=== PATIENT | female | born 1985 | race Caucasian/White ===

== ENCOUNTER 2019-12-18 14:48 | Outpatient (CLI) | payer OTHER, SELFPAY ==
[2019-12-18 16:09] LABS: Hemoglobin 11.6 g/dL (12.0-15.0)
[2019-12-18 16:24] LABS: Glucose 1 Hour PP 50gm Dose 107 mg/dL
[2019-12-18 17:04] LABS: HIV 1/2 Ab P24 Ag Result Negative (Negative)
[2019-12-19 07:05] LABS: Rapid Plasma Reagin Non-Reactive (NonReactive)
[2019-12-19] MEDS: RHO(D) IMMUNE GLOBULIN 300 MCG SYRINGE IM (14:58)
== END 2019-12-18 14:49 | disposition home or self-care (01) ==
PROVIDERS: Visit Provider Obstetrics & Gynecology
DX: Z36.0 Encounter for antenatal screening for chromosomal anomalies (principal); O36.0130 Maternal care for anti-D [Rh] antibodies, third trimester, not applicable or unspecified
CPT/HCPCS: 36415; 82947; 85014; 85018; 86592; 86703; 86900; 86901; 90384; 96372; G0432; J2790

== ENCOUNTER 2020-03-08 14:31 | Observation (INO) | payer OTHER, SELFPAY ==
[2020-03-08 17:44] VITALS: BMI 28.4
--- NOTE | 2020-03-28 11:52 | PM.OBTRLD ---
OB - Triage/Final Diagnosis Visit Information Date of evaluation: 03/08/20 Final Diagnosis (1) False labor: Code(s): O47.9 - False labor, unspecified Status: Acute
== END 2020-03-08 17:40 | disposition home or self-care (01) ==
PROVIDERS: Admitting Provider Obstetrics & Gynecology; Visit Provider Obstetrics & Gynecology
DX: O47.1 False labor at or after 37 completed weeks of gestation (principal); Z3A.37 37 weeks gestation of pregnancy
CPT/HCPCS: G0378; G0379

== ENCOUNTER 2020-03-19 00:14 | Inpatient (IN) | payer OTHER, SELFPAY ==
[2020-03-19] VITALS (204 sets, daily range): BP systolic 64–142; BP diastolic 27–93; PULSE 25–127; RESP 18; TEMP 36.5–37.3; O2SAT 83–100; BMI 28.2
--- NOTE | 2020-03-19 00:14 | LDADM ---
This patient, Pat Colon, was admitted to Labor/Delivery/Recovery 102 on 03/19/20 at 00:14. Plans for labor, pain management and were discussed with patient. Patient/family oriented to hospital policies and general routines including ID bracelet, bed and alarms, visiting hours, pain management, procedures, bathroom and other care routines, personal items, smoking policy, room service/diet and guest tray routines, infant security routines, and visiting hours. Patient/Family are encouraged to report perceived risks to care and to ask questions if they do not understand what they are told or what they should do. See OBIX for further documentation.
[2020-03-19 02:31] LABS: Basophils Percent Auto 0.2 % (0.2-1.2); Eosinophils Percent Auto 0.3 % (0-4.4); Hematocrit 36.6 % (37.0-47.0); Hemoglobin 12.7 g/dL (12.0-15.0); Immature Granulocyte Absolute 0.05 K/mm3 (0.00-0.031); Immature Granulocyte Percent A 0.5 % (0-0.5); Lymphocytes Absolute Auto 1.96 K/mm3 (0.9-3.2); Lymphocytes Percent Auto 21.2 % (18.3-44.2); Mean Corpuscular HGB Conc 34.7 g/dl (32-36); Mean Corpuscular Hemoglobin 32.6 pg (26-34); Mean Corpuscular Volume 93.8 fl (80-100); Mean Platelet Volume 12.6 fl (7.4-10.4); Monocytes Absolute Auto 0.6 K/mm3 (0.1-0.6); Monocytes Percent Auto 6.8 % (2.6-8.5); Neutrophils Absolute Auto 6.5 K/mm3 (1.3-6.7); Platelet Count Result 138 k/mm3 (150-375); Red Cell Distribution Width 12.2 % (11.5-14.5); White Blood Count 9.2 K/mm3 (4.5-10.0)
[2020-03-19] MEDS: CLINDAMYCIN 900 MG/NS 50 ML 900 MG/50 ML PIGGYBACK 50 MG IVPB ×3 (04:17→19:43)
--- NOTE | 2020-03-19 06:56 | WPDOBADMIT ---
Obstetrics - Admit Note Admission Note: record reviewed. No pertinent additions to the history and/or any subsequent changes in the physical findings that are not consistent with the expected course of the were found.Pt arrived with SROM, forebag ruptured, minimal clear fluid, IUPC placed. Pt has hx of successful TOLAC, first was for arrested dilation, vaginal delivery after w/o complication. This has been uncomplicated, reviewed with pt an risks including uterine rupture. anticipate vaginal delivery Additions to the history and/or subsequent changes in the physical findings follow. None.
[2020-03-19] MEDS: LACTATED RINGERS 1,000 ML 125 ML IV CONT ×3 (07:33→21:04)
[2020-03-19] MEDS: OXYTOCIN 30 UNITS/NS 500 ML 30 UNITS/500 ML BAG IV CONT (07:33)
[2020-03-19 12:08] LABS: Rapid Plasma Reagin Non-Reactive (NonReactive)
--- NOTE | 2020-03-19 14:09 | P.PNAN_ITS ---
Anes - Eval Pre Procedure Procedure: labor epidural Date/Time: 03/19/20 14:09 Surgeon: Bethanie Preop Diagnosis: labor pain Pre Op Diagnosis: leaking Patient Data Age: 34 Gender: F Height: 1.57 m Weight: 70 kg Last Vital Signs Temp 36.7 C 03/19/20 13:30 Pulse 71 03/19/20 14:00 BP 111/73 03/19/20 14:00 Allergies Allergy/AdvReac Type Severity Reaction Status Date / Time Penicillins Allergy Intermediate Hives Verified 02/25/20 12:42 latex Allergy Rash Verified 02/25/20 12:43 Home Medications Medication Instructions Recorded Confirmed Type PNV cmb#95-ferrous fumarate-FA 1 tablet PO DAILY 02/25/20 03/19/20 History [] Laboratory Tests 03/19/20 03/19/20 03/19/20 00:47 00:47 00:47 WBC 9.2 K/mm3 K/mm3 (4.5-10.0) RBC 3.90 M/mm3 L M/mm3 (4.2-5.4) Hgb 12.7 g/dL g/dL (12.0-15.0) Hct 36.6 % L % (37.0-47.0) MCV 93.8 fl fl (80-100) MCH 32.6 pg pg (26-34) MCHC 34.7 g/dl g/dl (32-36) RDW 12.2 % % (11.5-14.5) Plt Count 138 k/mm3 L k/mm3 (150-375) MPV 12.6 fl H fl (7.4-10.4) Immature Gran % (Auto) 0.5 % % (0-0.5) Neut % (Auto) 71.0 % % (45.5-73.1) Lymph % (Auto) 21.2 % % (18.3-44.2) Dickey % (Auto) 6.8 % % (2.6-8.5) Eos % (Auto) 0.3 % % (0-4.4) Baso % (Auto) 0.2 % % (0.2-1.2) Lymph # (Auto) 1.96 K/mm3 K/mm3 (0.9-3.2) Dickey # (Auto) 0.6 K/mm3 K/mm3 (0.1-0.6) Eos # (Auto) 0.0 K/mm3 K/mm3 (0-0.3) Baso # (Auto) 0.0 K/mm3 K/mm3 (0.0-0.1) Abs Immat Gran (auto) 0.05 K/mm3 H K/mm3 (0.00-0.031) Absolute Neuts (auto) 6.5 K/mm3 K/mm3 (1.3-6.7) Absolute Nucleated RBC 0.0 K/mm3 K/mm3 (0.0-0.012) Nucleated RBC % 0.0 % % (0.0-0.2) RPR Non-reactive (NonReactive) Blood Type A Negative Antibody Screen Positive Antibody Identification Passive Due to RH Imm Glob Antigen Identification Cancelled TERRI, IgG Interpret Cancelled TERRI, Poly Interpret Cancelled TERRI, Complement Interp Cancelled Patient hx anesthesia problems: none Family hx anesthesia problems: none [facility] Family History Family History (Updated 02/25/20 @ 12:45 by Selam Valdez RN) Mother Pott disease Father Hypertension Sibling Hypothyroidism Grandparent Lung cancer Brain cancer Social History Social History Smoking status: Never smoker Substance use: never Spiritual care concerns: No Exam Day of Procedure 03/19/20 14:09
--- NOTE | 2020-03-19 21:33 | PM.OBPNLAB ---
Pain Control Date/time seen: 03/19/20 21:33 Pt comfortable VSS Contractions regular FHR category 1 Cervix 5/100/-2 Forebag ruptured. Moderate amount of fluid I have discussed increased risk of uterine rupture with prolonged labor. Pt states her 1st vaginal was also very long. I am optimistic with the rupture of forebag along with cervical change. Pt verbalized understaning of risk and wants to proceed with .
[2020-03-20] VITALS (41 sets, daily range): BP systolic 103–130; BP diastolic 45–89; PULSE 26–163; RESP 16–20; TEMP 36.5–36.7; O2SAT 78–100
[2020-03-20] MEDS: LACTATED RINGERS 1,000 ML 125 ML IV CONT
--- NOTE | 2020-03-20 01:26 | P.PCNOB_ITS ---
OB - Delivery Note Procedure Delivery date: 03/20/20 events: Labor Augmentation and Prolonged Rupture of Membrane Route of delivery: Episiotomy description: None Laceration description: None Estimated blood loss (mL): 110 Anesthesia type: Epidural [place] Baby Date of : 03/20/20 Time of : 01:00 Weeks of gestation at delivery: 39 Weight (pounds): 6 Weight (ounces): 15 presentation: vertex position: Right Occiput Anterior Placenta delivery description: Spontaneous cord vessel description: 3 Vessels and Around Extremity x1 score one minute: 8 score five minutes: 9 Narrative: Mother and baby in stable condition. Cord gasses collected and handed off to nursery staff.
[2020-03-20] MEDS: OXYTOCIN 30 UNITS/NS 500 ML 30 UNITS/500 ML BAG 125 UNITS IV CONT (01:28)
[2020-03-20] MEDS: BENZOCAINE 20% AER SPR (*SP) 56 GM CAN 1 SPRAY TOPICAL (02:53)
[2020-03-20] MEDS: WITCH HAZEL 40 PADS 1 PAD TOPICAL (02:53)
[2020-03-20] MEDS: MULTIVIT/MIN/PREN/FOL AC/IRON TABLET 1 TAB PO (06:24)
[2020-03-20] MEDS: IBUPROFEN 600 MG TABLET PO ×2 (06:24→16:21)
[2020-03-20] MEDS: ACETAMINOPHEN 325 MG TABLET 650 MG PO ×2 (09:48→20:01)
[2020-03-21] MEDS: IBUPROFEN 600 MG TABLET PO ×3 (04:47→16:06)
[2020-03-21 05:10] LABS: Hematocrit 31.7 % (37.0-47.0); Hemoglobin 10.9 g/dL (12.0-15.0)
[2020-03-21 08:00] VITALS: BP 100/51; PULSE 72; RESP 18; TEMP 36.9
--- NOTE | 2020-03-21 09:08 | PM.OBPNVD ---
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
[2020-03-21] MEDS: DOCUSATE SODIUM 100 MG CAPSULE PO ×2 (12:22→16:05)
[2020-03-21] MEDS: MULTIVIT/MIN/PREN/FOL AC/IRON TABLET 1 TAB PO (12:23)
--- NOTE | 2020-03-21 15:30 | PC.NURSE ---
PT introductions made and plan of care discussed per post , pain management, breast feeding, daily care activities. PT verbalized understanding of such care.
[2020-03-21] MEDS: RHO(D) IMMUNE GLOBULIN 300 MCG SYRINGE IM (16:04)
[2020-03-21 19:15] VITALS: BP 126/80; PULSE 58; RESP 18; TEMP 37.3; O2SAT 99
[2020-03-21] MEDS: ACETAMINOPHEN 325 MG TABLET 650 MG PO (19:40)
--- NOTE | 2020-03-22 03:14 | PC.NURSE ---
Addendum entered by Pamela Eastman RN 03/22/20 03:15: Please enter this note as occurring 03/20/20 at 2300. Original Note: Patient viewed the discharge video Mother & Baby Care, The First Two Weeks . Patient was given the opportunity and encouraged to ask questions. Patient verbalized understanding of information shared and has been given the mother/baby guide for home reference.
--- NOTE | 2020-03-22 07:48 | PM.OBPNVD ---
OB - PN: Subj Subjective Date/time seen: 03/22/20 07:48 OB - PN: Obj Data Labs CBC & Chem 7: 03/21/20 04:54 Labs: Laboratory Results - last 24 hr 03/21/20 04:54 Blood Type A Negative Antibody Screen Negative Screen Negative Baby's Blood Type O pos Baby's TERRI Negative Doses of RhIg Required 1 OB - PN A/P Plan day: 2 Plan: routine care and discharge home (F/U 4 weeks.) Time Spent With Patient Time: Total time spent is greater than 50% in coordination of care (as documented) at patient's floor/unit and/or counseling patient: Time with patient: less than 15 minutes Review of Systems Review of Systems: All systems reviewed & are unremarkable except as noted in HPI and below Exam Narrative: Exam Narrative: Fundus firm and vaginal flow controlled. Const: General: comfortable Chest: Breast/axilla inspection: normal inspection of the breasts Resp: Effort & Inspection: normal respiratory effort Cardio: Rate: regular rate Psych: Appearance: grossly normal Affect: normal affect Attitude: cooperative Judgement: Good judgement present (Psych)
--- NOTE | 2020-03-22 07:49 | PM.OBDSVD ---
DS: Admitting Diagnosis Admitting Diagnosis Admitting Diagnosis: Labor DS: Discharge Diagnosis Discharge Diagnosis (1) (vaginal after ): Code(s): O34.219 - Maternal care for unspecified type scar from previous delivery Status: Acute OB - DS: Summary OB Procedures : None OB Procedures Intrapartum: OB Procedures: : None Time Spent with Patient Time attestation: Total time spent providing and/or coordinating discharge services: DS: Data Data Completed and Pending Labs on day of discharge: Labs from last 24 hours 03/21/20 04:54 Blood Type A Negative Antibody Screen Negative Screen Negative Baby's Blood Type O pos Baby's TERRI Negative Doses of RhIg Required 1 Discharge Plan Discharge Attending physician on discharge: Heather Chandler Consulting providers: Grayson Al Discharging Clinician: Heather Chandler Patient Disposition: Home, Self-Care Activity: pelvic rest Diet: as tolerated Patient Instructions: Antibiotic Form Stand Alone Forms: General Discharge Information Follow-up/Referrals: Heather Chandler CNM [Certified Nurse Computer Programming Manager] - Discharge Medications: New ibuprofen 600 mg Tablet 600 mg PO Q6H PRN (Reason: Cramping) Qty: 20 RF: 0 Continued PNV cmb#95-ferrous fumarate-FA [] 28 mg iron- 800 mcg Tablet 1 tablet PO DAILY RF: 0 Date of admission: 03/19/20 00:14 Primary Care Provider: PHYSICIAN,ARCH CUSHION PRESS OPERATOR Admitting Provider: Gita Kovacs Attending physician on admission: Gita Kovacs
[2020-03-22 08:00] VITALS: BP 117/82; PULSE 62; RESP 20; TEMP 37.1; O2SAT 100
[2020-03-22] MEDS: IBUPROFEN 600 MG TABLET PO (08:06)
[2020-03-22] MEDS: DOCUSATE SODIUM 100 MG CAPSULE PO (08:06)
[2020-03-22] MEDS: MULTIVIT/MIN/PREN/FOL AC/IRON TABLET 1 TAB PO (08:06)
[2020-03-23 11:02] VITALS: BP 114/65; PULSE 72; RESP 16; TEMP 36.6; O2SAT 99
== END 2020-03-22 10:50 | disposition home or self-care (01) | DRG 560 ==
LOC: ANHLDR 02:59 → ANHOB2 03-20 03:47
PROVIDERS: Advanced Practice Midwife; Admitting Provider Obstetrics & Gynecology; Visit Provider Obstetrics & Gynecology
DX: O42.12 Full-term premature rupture of membranes, onset of labor more than 24 hours following rupture (principal); Z37.0 Single live birth; Z3A.39 39 weeks gestation of pregnancy; O63.9 Long labor, unspecified; O34.211 Maternal care for low transverse scar from previous cesarean delivery; O36.8330 Maternal care for abnormalities of the fetal heart rate or rhythm, third trimester, not applicable or unspecified; O69.82X0 Labor and delivery complicated by other cord entanglement, without compression, not applicable or unspecified
CPT/HCPCS: 36415; 84112; 85014; 85018; 85025; 85461; 86592; 86850; 86900; 86901; 90384; A9270; J2590; J2790; J2795; J7120

== ENCOUNTER 2020-12-10 21:22 | Emergency (ER) | payer OTHER, SELFPAY ==
[2020-12-10 21:25] VITALS: BP 109/76; PULSE 64; RESP 16; TEMP 36.2; O2SAT 100
--- NOTE | 2020-12-10 22:04 | ED.WOUNDLAC ---
HPI - Wound/Laceration General Chief Complaint: Wound/Laceration Stated Complaint: huge infected bump on leg Time Seen by Provider: 12/10/20 21:35 Source: patient Mode of arrival: ambulatory Limitations: no limitations History of Present Illness HPI narrative: 35-year-old female Here to get a bump on her left upper leg checked She said it started earlier today as a small bump with a little clear fluid draining out of it She was trying to clear it up by squeezing it and getting it to drain but the unfortunate result was that the immediate area around it became more indurated and tender and there is about a 4 x 6 cm area of faint erythema no surrounding it Additionally, earlier there seem to be white, not red, streaks going down the inside of the leg towards the foot but that is resolved now Patient does not think that she has had any insect bites or stings but on the other hand she has had ingrown hairs or folliculitis and did not necessarily think it looks like that either She does not have any constitutional symptoms or fever Related Data Home Medications Medication Instructions Recorded Confirmed PNV cmb#95-ferrous fumarate-FA 1 tablet PO DAILY 02/25/20 03/19/20 [] meloxicam 12/10/20 Allergies Allergy/AdvReac Type Severity Reaction Status Date / Time Penicillins Allergy Intermediate Hives Verified 12/10/20 22:09 latex Allergy Rash Verified 12/10/20 22:09 Review of Systems Review of Systems: All systems reviewed & are unremarkable except as noted in HPI and below Constitutional: Constitutional: Denies chills, Denies fatigue, Denies fever(s) and Denies headache(s) ENT: Denies headache(s) and Denies epistaxis Cardiovascular: Cardiovascular: Denies leg edema, Denies palpitations and Denies dyspnea Respiratory: Respiratory: Denies cough and Denies dyspnea Gastrointestinal: Gastrointestinal: Denies nausea and Denies vomiting Genitourinary: Genitourinary: Denies hematuria and Denies urinary frequency Musculoskeletal: Musculoskeletal: Denies myalgias, Denies deformity, Denies muscle weakness and Denies numbness Integumentary/Breasts: Skin/Breast: Reports pruritus, Reports erythema, Reports rash and Denies wounds Neurologic: Denies numbness Endocrine: Endocrine: Denies fatigue and Denies palpitations Hematologic/Lymphatic: Hematologic/Lymphatic: Denies easy bleeding and Denies easy bruising PMFSH Family History Family History (Updated 02/25/20 @ 12:45 by Selam Valdez RN) Mother Pott disease Father Hypertension Sibling Hypothyroidism Grandparent Lung cancer Brain cancer Social History Social History Smoking status: Never smoker Substance use: never Spiritual care concerns: No Exam Const: General: no acute distress, well developed, alert and awake Nutritional Appearance: well nourished Orientation/consciousness: patient oriented x3 (alert) HENMT: Head: normocephalic and atraumatic Ears: external ears normal General nose exam: No nasal discharge present and no epistaxis Face and sinus: face symmetric Eyes: Conjunctivae: conjunctivae normal Sclera: sclerae normal EOM: EOMs intact bilaterally Neck: Neck: normal visual inspection, supple and no JVD Chest: Chest palpation & inspection: deferred Resp: Effort & Inspection: normal respiratory effort and not labored Auscultation: other (BS =) Cardio: Heart sounds: no gallops GI: Inspection: normal to inspection : General: Yes no CVA tenderness Back/Spine/Pelvis: Thoracic/Lumbar Spine: thoracic and lumbar spine normal to inspection Skin: General skin exam: normal color and no rashes or lesions noted Rashes: no rashes Neuro: General: patient oriented x3 (alert) and moves all extremities Cranial nerves: Yes facial symmetry Speech: normal speech Extrem: General: normal to inspection and full ROM Other: Left upper thigh has about a 1 cm area of induration with no obvious fluctuance and a small ce
[2020-12-10 22:12] VITALS: BP 99/52; PULSE 79; RESP 18; TEMP 36.6; O2SAT 100
== END 2020-12-10 22:36 | disposition home or self-care (01) ==
PROVIDERS: Emergency Provider Emergency Medicine; PCP Internal Medicine Infectious Disease
DX: L03.116 Cellulitis of left lower limb (principal); L73.9 Follicular disorder, unspecified
CPT/HCPCS: 10160; 99283; A9270

== ENCOUNTER 2021-03-22 10:48 | Emergency (ER) | payer OTHER, SELFPAY ==
--- NOTE | ~2021-03-22 | US_ITS ---
EXAMINATION: US OB <= 14 weeks fetus DATE: 03/22/2021 12:10 INDICATION: Right adnexal pain and pain TECHNIQUE: Real-time transabdominal and transvaginal obstetric ultrasound. FINDINGS: No prior studies for comparison. The uterus measures 7.5 x 3.8 5.1 cm. No intrauterine gestational sac is identified. There is endomet rial thickening measuring 1.4 cm. There is a small endometrial cyst measuring 4 mm. Right ovary is un remarkable measuring 2.7 x 2.2 x 2.4 cm. Left ovary is not well visualized. No adnexal masses or flui d collections. IMPRESSION: 1. No intrauterine identified. Recommend follow-up with serial quantitative beta-hCG levels and ultrasound as clinically indicated. 2: Mild endometrial thickening measuring 1.4 cm. Reviewed, dictated and finalized at location B. IMPRESSION: 1. No intrauterine identified. Recommend follow-up with serial quanti tative beta-hCG levels and ultrasound as clinically indicated. 2: Mild endometrial thickening measuring 1.4 cm.
[2021-03-22 11:04] VITALS: BP 126/64; PULSE 55; RESP 18; TEMP 36.3; O2SAT 100
[2021-03-22] MEDS: SODIUM CHLORIDE 0.9% IV 1,000 ML 999 ML IV CONT (11:21)
[2021-03-22 11:30] LABS: Basophils Percent Auto 0.4 % (0.2-1.2); Eosinophils Percent Auto 0.6 % (0-4.4); Hematocrit 39.8 % (37.0-47.0); Hemoglobin 13.3 g/dL (12.0-15.0); Immature Granulocyte Absolute 0.01 K/mm3 (0.00-0.031); Immature Granulocyte Percent A 0.2 % (0-0.5); Lymphocytes Absolute Auto 1.61 K/mm3 (0.9-3.2); Lymphocytes Percent Auto 31.3 % (18.3-44.2); Mean Corpuscular HGB Conc 33.4 g/dl (32-36); Mean Corpuscular Hemoglobin 31.8 pg (26-34); Mean Corpuscular Volume 95.2 fl (80-100); Mean Platelet Volume 11.2 fl (7.4-10.4); Monocytes Absolute Auto 0.4 K/mm3 (0.1-0.6); Monocytes Percent Auto 6.8 % (2.6-8.5); Neutrophils Absolute Auto 3.1 K/mm3 (1.3-6.7); Neutrophils Percent Auto 60.7 % (45.5-73.1); Platelet Count Result 176 k/mm3 (150-375); Red Blood Count 4.18 M/mm3 (4.2-5.4); Red Cell Distribution Width 12.1 % (11.5-14.5); White Blood Count 5.2 K/mm3 (4.5-10.0)
[2021-03-22 11:38] LABS: Add Urine Microscopic? YES; Appearance Urine Clear (Clear); Bilirubin Urine Negative (Negative); Blood Urine 1+ (Negative); Color Urine Yellow (Yellow); Glucose Urine UA Negative (Negative); Ketones Urine Negative (Negative); Leukocyte Esterase Ur Negative LEU/UL (Negative); Mucus Urine Rare /lpf; Nitrate Urine Negative (Negative); Protein Urine Negative (Negative); RBC Urine 0-2 /hpf (0-2); Specific Grav Ur 1.023 (1.001-1.035); Squamous Epithelial Cell Urine Moderate /hpf (Few); Urobilinogen Urine Negative mg/dL (<2.0); WBC Urine 0-3 /hpf
[2021-03-22 11:41] LABS: Alanine Aminotransferase 16 U/L (4-35); Albumin Level 4.3 g/dL (3.5-5.1); Alkaline Phosphatase 51 U/L (38-126); Anion Gap 7 mmol/L (8-16); Aspartate Amino Transferase 22 U/L (14-36); Bilirubin,Total 0.5 mg/dL (0.2-1.3); Blood Urea Nitrogen 17 mg/dL (7-17); Calcium 9.5 mg/dL (8.4-10.2); Carbon Dioxide 24 mmol/L (22-30); Chloride 107 mmol/L (98-107); Estimated CRCL calculation 69 ml/min; Estimated Glomerular Filt Rate > 60; Glucose 94 mg/dL (65-105); Lipase 59 U/L (23-300); Potassium 4.4 mmol/L (3.4-5.0); Sodium 138 mmol/L (137-145)
[2021-03-22 11:56] LABS: Beta HCG Quantitative 176.84 mIU/ML
--- NOTE | 2021-03-22 13:28 | ED.GENADULT ---
HPI - General Adult General Chief complaint: Abdominal Pain Stated complaint: / R sided abd pain Time Seen by Provider: 03/22/21 11:05 Source: patient, family and RN notes reviewed Mode of arrival: ambulatory Limitations: no limitations History of Present Illness HPI narrative: Patient is a 35-year-old female who presents to emergency department for evaluation of pelvic pain localized to the right side describes a sharp stabbing pain which began this morning patient notes that on Sunday she had a positive home test and Sunday began to have cramping and bleeding may discussion with her rn hospice and had blood testing performed as well as was given RhoGam and had planned follow-up for repeat hCG on Sunday patient notes that today the pain intensified and she was directed to the emergency department on arrival she notes she has not taken anything and notes sharp pain in the right adnexa denies abdominal pain or other concerns or symptoms at this time patient on arrival does not appear uncomfortable and is in the room in no distress and is accompanied by her . Patient is followed by Dr. Kovacs. Patient is G4, P3 Related Data Home Medications Medication Instructions Recorded Confirmed No Home Medications 03/22/21 03/22/21 Allergies Allergy/AdvReac Type Severity Reaction Status Date / Time Penicillins Allergy Intermediate Hives Verified 03/22/21 11:10 latex Allergy Rash Verified 03/22/21 11:10 Review of Systems Review of Systems: All systems reviewed & are unremarkable except as noted in HPI and below PMFSH Family History Family History (Updated 02/25/20 @ 12:45 by Selam Valdez, MARISOL) Mother Pott disease Father Hypertension Sibling Hypothyroidism Grandparent Lung cancer Brain cancer Social History Social History Smoking status: Never smoker Substance use: never Spiritual care concerns: No Exam Narrative: Exam Narrative: GENERAL: Well-appearing, well-nourished, and in no acute distress. HEAD: Normocephalic, atraumatic. EYES: PERRLA and EOMI. ENT: Nares clear, no rhinorrhea or epistaxis. Mucous membranes moist. CHEST: Clear to auscultation. No respiratory distress. No wheezes rales or rhonchi HEART: Regular rate and rhythm. No murmur heard. ABDOMEN: Soft, right adnexal tenderness to palpation no other abnormalities no rebound or guarding, nondistended, normal active bowel sounds. EXTREMITIES: Normal range of motion. No edema. SKIN: Warm, dry, no rash. NEURO: No focal deficits. Alert and oriented x3. Cranial nerves II through XII grossly intact PSYCH: Normal mood and affect. Course Course Emergency Course: Patient evaluated in the emergency department no high risk changes in the evaluation there was nothing seen on her ultrasound her beta quant has dropped from yesterday discussion was made with gynecology for further instructions and notes that he would like her to have repeat testing with follow-up at that time. Patient with ABCs and vital signs intact and stable. Was hydrated and given Tylenol with improvement of pain and discomfort. Patient feels comfortable with discharge home with this plan. She has been given reasons to return and agrees to do so Consultations Consultation #1: Case was discussed with gynecology who would like the patient have repeat serum quant on with follow-up case was discussed with Dr. Kovacs Date: 03/22/21 Time: 13:32 Vital Signs Vital signs: Vital Signs Temperature 97.3 F L 03/22/21 11:04 Pulse Rate 55 L 03/22/21 11:04 Respiratory Rate 18 03/22/21 11:04 Blood Pressure 126/64 03/22/21 11:04 Pulse Oximetry 100 03/22/21 11:04 Temperature 97.3 F L 03/22/21 11:04 Pulse Rate 55 L 03/22/21 11:04 Respiratory Rate 18 03/22/21 11:04 Blood Pressure 126/64 03/22/21 11:04 Pulse Oximetry 100 03/22/21 11:04 Medical Decision Making CHARLIE Garcia
== END 2021-03-22 13:43 | disposition home or self-care (01) ==
PROVIDERS: Emergency Medicine Emergency Medical Services; Emergency Provider Emergency Medicine; PCP Internal Medicine Infectious Disease
DX: O26.891 Other specified pregnancy related conditions, first trimester (principal); R10.9 Unspecified abdominal pain; Z3A.01 Less than 8 weeks gestation of pregnancy
CPT/HCPCS: 36415; 76801; 80053; 81001; 81025; 83690; 84702; 85025; 96365; 99284; J0131; J7030

== ENCOUNTER 2021-03-26 13:02 | Outpatient (RCR) | payer OTHER, SELFPAY ==
[2021-03-21 13:06] LABS: Beta HCG Quantitative 189.74 mIU/ML
[2021-03-21] MEDS: RHO(D) IMMUNE GLOBULIN 300 MCG/2 ML SYRINGE IM (18:07)
== END 2021-05-16 12:19 | disposition home or self-care (01) ==
LOC: ANHLAB 13:02
PROVIDERS: PCP Internal Medicine Infectious Disease; Visit Provider Obstetrics & Gynecology
DX: Z29.13 Encounter for prophylactic Rho(D) immune globulin (principal); O20.0 Threatened abortion; Z3A.00 Weeks of gestation of pregnancy not specified
CPT/HCPCS: 36415; 84702; 85461; 90384; 96372; J2790

== ENCOUNTER 2021-03-29 16:52 | Outpatient (CLI) | payer OTHER, SELFPAY ==
[2021-03-29 17:44] LABS: Beta HCG Quantitative 453.07 mIU/ML
== END 2021-03-29 16:53 | disposition home or self-care (01) ==
LOC: ANHLAB 16:54
PROVIDERS: PCP Internal Medicine Infectious Disease; Visit Provider Obstetrics & Gynecology
DX: O20.0 Threatened abortion (principal); Z3A.00 Weeks of gestation of pregnancy not specified
CPT/HCPCS: 36415; 84702

== ENCOUNTER 2021-04-04 14:16 | Emergency (ER) | payer OTHER, SELFPAY ==
[2021-04-04] VITALS (10 sets, daily range): BP systolic 78–175; BP diastolic 44–100; PULSE 44–78; RESP 13–22; TEMP 36.4–37.3; O2SAT 98–100
--- NOTE | ~2021-04-04 | US_ITS ---
EXAMINATION: US OB <=14 wk fetus w TV EXAM DATE: 04/04/2021 16:05 INDICATION: , vaginal bleeding. Beta hCG 230. 1st trimester. TECHNIQUE: Pelvic obstetrical transabdominal sonogram was performed by a technologist. There are mu ltiple grayscale and Doppler images available for interpretation. Comparison is made to prior examina tion from 03/22/2021. FINDINGS: Uterus measures 10.1 x 5.8 x 3.5 cm, without intrauterine identified. Please not e that gestation sac often not identified with beta hCG of only 230. Endometrial stripe measures 19 m m in thickness, increased from 14 mm on 03/22. Probably decidual reaction. There is small free pelvic fluid. Right adnexa: The ovary measures 2.5 x 2.1 x 2.1 cm, contains a thick-walled cystic lesion without yo lk sac or pole. Probably the corpus luteal cyst. Ovarian vascular flow confirmed. Left adnexa: The ovary is not identified. There is no adnexal mass. IMPRESSION: No intrauterine or extrauterine identified. Early intrauterine or rec ent spontaneous are common causes of elevated beta hCG in absence of intrauterine confirmation. Ultrasound can sometimes identify, but never exclude an ectopic in the setti ng of positive beta hCG. Follow up as warranted clinically with serial beta hCG levels or ultrasound . Reviewed, dictated and finalized at location A. IMPRESSION: No intrauterine or extrauterine identified. Early intraut erine or recent spontaneous are common causes of elevated be ta hCG in absence of intrauterine confirmation. Ultrasound can somet imes identify, but never exclude an ectopic in the setting of positiv e beta hCG. Follow up as warranted clinically with serial beta hCG levels or u ltrasound.
[2021-04-04 14:54] LABS: Basophils Percent Auto 0.3 % (0.2-1.2); Eosinophils Percent Auto 0.5 % (0-4.4); Hematocrit 40.5 % (37.0-47.0); Hemoglobin 13.8 g/dL (12.0-15.0); Immature Granulocyte Absolute 0.02 K/mm3 (0.00-0.031); Immature Granulocyte Percent A 0.3 % (0-0.5); Lymphocytes Absolute Auto 1.87 K/mm3 (0.9-3.2); Mean Corpuscular HGB Conc 34.1 g/dl (32-36); Mean Corpuscular Hemoglobin 31.5 pg (26-34); Mean Corpuscular Volume 92.5 fl (80-100); Mean Platelet Volume 11.4 fl (7.4-10.4); Monocytes Absolute Auto 0.4 K/mm3 (0.1-0.6); Monocytes Percent Auto 6.5 % (2.6-8.5); Neutrophils Absolute Auto 3.5 K/mm3 (1.3-6.7); Neutrophils Percent Auto 60.4 % (45.5-73.1); Platelet Count Result 214 k/mm3 (150-375); Red Blood Count 4.38 M/mm3 (4.2-5.4); White Blood Count 5.8 K/mm3 (4.5-10.0)
--- NOTE | 2021-04-04 15:33 | PC.NURSE ---
Patient's family member states that patient has been bleeding regularly and daily for the last month. He tells me that bleeding is usually self limiting but that today she has been continuing to have bleeding as well as severe cramping. Patient is noted to be laying in position on bed and does not answer questions, allowing family member to answer. When asked about pain patient does report 10/10 with family member over speaking her reporting patient has 11/10 pain. Patient reports that she needs to change tampons every two hours due to the bleeding. She also reports small clots present. [facility] 02/14/2021, she has not been provided with estimated due date. Family member reports she was supposed to be tomorrow but they came in due to the change in patient condition. He also reports that been having HCG levels checked every 72 hours with last draw on Sunday at this facility. She is a [id number].
[2021-04-04 15:34] LABS: Beta HCG Quantitative 230.15 mIU/ML
[2021-04-04] MEDS: MORPHINE SULFATE (*CRX) 4 MG/ML INJ (16:29)
[2021-04-04] MEDS: ONDANSETRON INJ 4 MG/2 ML VIAL (16:29)
--- NOTE | 2021-04-04 17:44 | ED.FEMALEGU ---
HPI - Female Genitourinary General Chief complaint: Vaginal Bleeding Stated complaint: 7 weeks,bleeding,pain Time Seen by Provider: 04/04/21 16:13 Source: patient, family and RN notes reviewed Mode of arrival: ambulatory Limitations: no limitations History of Present Illness HPI Narrative: Patient is 35 years old white female presented to the ED complaining of right lower quadrant pain associated with nausea, constant, and radiating to lower back today. Patient is 7 weeks , 5, para 3, 0, complaining of vaginal spotting alternating with heavy bleeding for the last 4 weeks. Was seen by Dr. denney 1 week ago and the impression was ectopic . Patient denies smoking, drinking or using drugs. History of section. Patient denies any fever, chills, vomiting, urinary symptoms. Related Data Allergies Allergy/AdvReac Type Severity Reaction Status Date / Time Penicillins Allergy Intermediate Hives Verified 03/22/21 11:10 latex Allergy Rash Verified 03/22/21 11:10 Review of Systems Review of Systems: Narrative: CONSTITUTIONAL: Denies fever, chills, or sweats. EYES: Denies visual changes, redness, or discharge. ENT: Denies rhinorrhea, congestion, sore throat, or otalgia. CARDIOVASCULAR: Denies chest pain, palpitations, or edema. RESPIRATORY: Denies cough or dyspnea. GASTROINTESTINAL: Denies abdominal pain, nausea, vomiting, or diarrhea. GENITOURINARY: Denies dysuria or hematuria. SKIN: Denies rash or itching. MUSCULOSKELETAL: Denies back pain, joint pain, or myalgia. NEUROLOGIC: Denies headache, numbness, or weakness. PSYCHIATRIC: Denies anxiety or depression. PMFSH Family History Family History Mother Pott disease Father Hypertension Sibling Hypothyroidism Grandparent Lung cancer Brain cancer Social History Social History Smoking status: Never smoker Substance use: never Gender identity (if verbalized by the patient): Female Spiritual care concerns: No Exam Narrative: Exam Narrative: General appearance: Well-developed, well-nourished, looks ill Skin: Normal color Head: Normocephalic, nontraumatic Eyes: Clear conjunctiva ENT: Oropharynx normal, ears normal, nose normal Neck: Supple, nontender Chest and respiratory: Airway patent, no respiratory distress, no accessory muscle use Heart: Regular rate/rhythm Abdomen: Soft, mild diffuse tenderness lower abdomen bilaterally,, no organomegaly, quiet bowel sounds Vascular: Normal peripheral pulses, normal capillary refill. Musculoskeletal: Normal range of motion, nontender back Neurologic: Alert and oriented ?3, CONTACT LENS TECHNICIAN is normal as tested, no gross motor deficit : External Female Exam: normal external appearance Speculum Exam - Vagina: normal appearance of the vagina and vaginal bleeding (Mild vaginal bleeding, too long Q-tip was enough to dry the whole vaginal p) Bimanual exam- vagina & uterus: normal bimanual exam Bimanual Exam- Adnexa, other: tender (Right adnexal tenderness) on the right Course Course Emergency Course: Stable Consultations Consultation #1: gabriela Patient can go home, ibuprofen 600 every 6 hours as needed, call office in the morning for exam Date: 04/04/21 Time: 18:45 Vital Signs Vital signs: Vital Signs Temperature 37.0 C 04/04/21 14:30 Pulse Rate 78 04/04/21 14:30 Respiratory Rate 22 H 04/04/21 14:30 Blood Pressure 175/100 H 04/04/21 14:30 Pulse Oximetry 100 04/04/21 14:30 Temperature 36.6 C 04/04/21 16:35 Pulse Rate 58 L 04/04/21 16:35 Respiratory Rate 13 04/04/21 16:35 Blood Pressure
== END 2021-04-04 19:29 | disposition home or self-care (01) ==
PROVIDERS: Emergency Medicine; Emergency Provider Emergency Medicine; PCP Internal Medicine Infectious Disease
DX: O03.9 Complete or unspecified spontaneous abortion without complication (principal)
CPT/HCPCS: 36415; 76801; 76817; 84702; 85025; 85461; 86880; 86902; 96374; 96375; 99284; J2270; J2405

== ENCOUNTER 2021-04-06 07:55 | Outpatient (CLI) | payer OTHER, SELFPAY ==
[2021-04-06 08:15] LABS: Hematocrit 40.4 % (37.0-47.0); Hemoglobin 13.1 g/dL (12.0-15.0); Mean Corpuscular HGB Conc 32.4 g/dl (32-36); Mean Corpuscular Hemoglobin 31.3 pg (26-34); Mean Corpuscular Volume 96.4 fl (80-100); Platelet Count Result 199 k/mm3 (150-375); Red Blood Count 4.19 M/mm3 (4.2-5.4); Red Cell Distribution Width 12.2 % (11.5-14.5); White Blood Count 6.3 K/mm3 (4.5-10.0)
[2021-04-06 08:25] LABS: Alanine Aminotransferase 18 U/L (4-35); Albumin Level 4.3 g/dL (3.5-5.1); Alkaline Phosphatase 45 U/L (38-126); Anion Gap 7 mmol/L (8-16); Aspartate Amino Transferase 24 U/L (14-36); Bilirubin,Total 0.4 mg/dL (0.2-1.3); Blood Urea Nitrogen 18 mg/dL (7-17); Calcium 9.7 mg/dL (8.4-10.2); Carbon Dioxide 27 mmol/L (22-30); Chloride 106 mmol/L (98-107); Estimated Glomerular Filt Rate > 60; Glucose 109 mg/dL (65-105); Potassium 5.1 mmol/L (3.4-5.0); Sodium 140 mmol/L (137-145)
== END 2021-04-06 07:56 | disposition home or self-care (01) ==
PROVIDERS: PCP Internal Medicine Infectious Disease; Visit Provider Obstetrics & Gynecology
DX: O00.91 Unspecified ectopic pregnancy with intrauterine pregnancy (principal); Z3A.00 Weeks of gestation of pregnancy not specified
CPT/HCPCS: 36415; 80053; 84702; 85027

== ENCOUNTER 2021-04-09 09:14 | Outpatient (RCR) | payer OTHER, SELFPAY | END 2021-05-16 12:20 | disposition home or self-care (01) | LOC: ANHLAB 09:14 | PROVIDERS: PCP Internal Medicine Infectious Disease; Visit Provider Obstetrics & Gynecology | DX: O00.90 Unspecified ectopic pregnancy without intrauterine pregnancy (principal); Z3A.00 Weeks of gestation of pregnancy not specified | CPT/HCPCS: 36415; 84702 ==

== ENCOUNTER 2021-05-16 12:03 | Outpatient (RCR) | payer OTHER, SELFPAY ==
[2021-04-20 13:13] LABS: Beta HCG Quantitative 217.11 mIU/ML
[2021-04-26 12:57] LABS: Beta HCG Quantitative 92.29 mIU/ML
[2021-05-04 17:11] LABS: Beta HCG Quantitative 26.91 mIU/ML
[2021-05-16 13:50] LABS: Beta HCG Quantitative < 2.39 mIU/ML
== END 2021-07-11 23:59 | disposition home or self-care (01) ==
LOC: ANHLAB 12:03
PROVIDERS: PCP Internal Medicine Infectious Disease; Visit Provider Obstetrics & Gynecology
DX: O00.90 Unspecified ectopic pregnancy without intrauterine pregnancy (principal); Z3A.00 Weeks of gestation of pregnancy not specified
CPT/HCPCS: 36415; 84702

== ENCOUNTER 2023-01-28 14:38 | Emergency (ER) | payer MEDICAID, SELFPAY ==
--- NOTE | ~2023-01-28 | US_ITS ---
EXAMINATION: US OB <=14 wk fetus w TV DATE: 01/28/2023 15:38 INDICATION: Vaginal bleeding TECHNIQUE: Real-time pelvic transabdominal and transvaginal ultrasound was performed. COMPARISON: None. FINDINGS: The uterus measures 8.8 x 4.8 x 4.5 cm. The endometrium is mildly thickened and irregular a ppearance. There is a 5 mm oval fluid collection in the caudal portion of the endometrium. The right ovary measures 1.6 x 1.0 x 1.0 cm. The left ovary measures 2.6 x 2.0 x 1.7 cm. There is nor mal vascular flow in the ovaries. There is no free fluid in the pelvis. IMPRESSION: 1. of unknown location. Although no intrauterine gestational sac is seen, this may be due t o early gestation. If the patient is clinically stable, recommend followup with serial beta-hCG and u ltrasound. Reviewed, dictated and finalized at location F. IMPRESSION: 1. of unknown location. Although no intrauterine gestational sac is s een, this may be due to early gestation. If the patient is clinically stable, r ecommend followup with serial beta-hCG and ultrasound.
[2023-01-28 14:40] VITALS: BP 110/70; PULSE 66; RESP 16; TEMP 36.7; O2SAT 100
[2023-01-28 15:05] VITALS: BP 112/68
[2023-01-28 15:16] LABS: Basophils Percent Auto 0.5 % (0.2-1.2); Eosinophils Percent Auto 0.5 % (0-4.4); Hematocrit 37.3 % (37.0-47.0); Hemoglobin 12.8 g/dL (12.0-15.0); Immature Granulocyte Absolute 0.01 K/mm3 (0.00-0.031); Immature Granulocyte Percent A 0.2 % (0-0.5); Lymphocytes Absolute Auto 1.62 K/mm3 (0.9-3.2); Lymphocytes Percent Auto 29.6 % (18.3-44.2); Mean Corpuscular HGB Conc 34.3 g/dl (32-36); Mean Corpuscular Volume 96.1 fl (80-100); Mean Platelet Volume 11.2 fl (7.4-10.4); Monocytes Absolute Auto 0.4 K/mm3 (0.1-0.6); Monocytes Percent Auto 7.1 % (2.6-8.5); Neutrophils Absolute Auto 3.4 K/mm3 (1.3-6.7); Neutrophils Percent Auto 62.1 % (45.5-73.1); Platelet Count Result 182 k/mm3 (150-375); Red Blood Count 3.88 M/mm3 (4.2-5.4); Red Cell Distribution Width 12.5 % (11.5-14.5); White Blood Count 5.5 K/mm3 (4.5-10.0)
--- NOTE | 2023-01-28 15:16 | ED.PREGNANCY ---
HPI - General Chief complaint: Vaginal Bleeding Stated complaint: vaginal bleeding Time Seen by Provider: 01/28/23 14:55 Source: patient, RN notes reviewed and old records reviewed Mode of arrival: ambulatory Limitations: no limitations History of Present Illness HPI Narrative: This is a 37 year old who presents for evaluation of heavy vaginal bleeding. Patient states she believed she started having a miscarriage 5 weeks ago when she was thought to be 6 weeks GA. She states she had not have US to confirm . She states she has been having vaginal bleeding daily for 5 weeks. Her bleeding was heavy for 2 weeks and then became to similar to regular menstrual cycle. She has come to ER today because she developed heavy bleeding today. She reports she is passing clots and she soaked her underwear. She also reports dizziness. She thinks she is having shortness of breath due to anxiety. PIYUSH is Dr. Kovacs Related Data Allergies Allergy/AdvReac Type Severity Reaction Status Date / Time Penicillins Allergy Intermediate Hives Verified 03/22/21 11:10 latex Allergy Rash Verified 03/22/21 11:10 Review of Systems Constitutional: Constitutional: Reports fatigue and Denies weakness Cardiovascular: Cardiovascular: Denies syncope, Denies rapid heart rate, Denies irregular heart rhythm, Denies leg edema and Denies dyspnea Respiratory: Respiratory: Denies chest congestion, Denies hemoptysis, Denies excessive phlegm production and Denies dyspnea Gastrointestinal: Gastrointestinal: Denies abdominal pain, Denies hematochezia, Denies diarrhea and Denies vomiting Genitourinary: Genitourinary: Reports abnormal vaginal bleeding, Denies hematuria and Denies dysuria Musculoskeletal: Musculoskeletal: Denies joint swelling, Denies loss of height and Denies muscle weakness Neurologic: Denies syncope, Denies focal weakness and Denies weakness [facility] Past Medical History Medical History (Updated 01/28/23 @ 17:58 by Lakeisha Novak MD) Ectopic Family History Family History Mother Pott disease Father Hypertension Sibling Hypothyroidism Grandparent Lung cancer Brain cancer Social History Social History Smoking status: Never smoker Substance use: never Gender identity (if verbalized by the patient): Female Spiritual care concerns: No Exam Narrative: GENERAL: Well-appearing, well-nourished, and in no acute distress. HEAD: Normocephalic, atraumatic EYES: PERRLA and EOMI, conjunctiva clear without discharge THROAT:Mucous membranes moist, Oropharynx normal without erythema, exudate, peritonsillar swelling or fluctuance NECK: Supple, without lymphadenopathy or mass RESPIRATORY: No respiratory distress, Airway patent, Respirations non-labored, Clear to auscultation without rales, rhonchi or wheeze HEART: Regular rate and rhythm. No murmur heard. Normal peripheral pulses. ABDOMEN: Soft, nontender, nondistended, normal active bowel sounds. No masses. No rebound or guarding, No organomegaly. EXTREMITIES: No edema, normal strength with full range of motion. SKIN: Warm, dry, normal color without rash NEURO: Alert and oriented x3. CN 2-12 grossly intact. No focal deficits. PSYCH: Normal mood and affect. : Speculum Exam - Vagina: vaginal bleeding (small amount, small clot removed, no significant active bleeding) Speculum Exam - Cervix: Cervical os closed Bimanual Exam- Adnexa, other: no masses Course Reevaluation(s) Reevaluation #1: I have discussed with patient about US and HCG. She has minimal bleeding. I Discussed Dr. Kovacs requesting her to call office tomorrow to follow up as outpatient. She is agreeable. She also understands she is getting rhogam before discharge due to rh negative blood type Date: 01/28/23 Time: 17:55 Consultations Consultation #1: I spoke with Dr. Fu
[2023-01-28 15:27] LABS: Prothrombin Time 13.7 Seconds (11.1-14.7)
[2023-01-28 15:28] LABS: Partial Thromboplastin Time 27.2 SECONDS (22.3-36.8)
[2023-01-28] MEDS: SODIUM CHLORIDE 0.9% IV 1,000 ML 999 ML IV CONT (15:32)
[2023-01-28] MEDS: RHO(D) IMMUNE GLOBULIN 300 MCG/2 ML SYRINGE IM (18:05)
[2023-01-28 18:10] VITALS: BP 115/89; PULSE 81; RESP 16; O2SAT 97
--- NOTE | 2023-02-12 07:40 | PC.NURSE ---
IVF stopped at 1635 on 01/28/2023
== END 2023-01-28 18:12 | disposition home or self-care (01) ==
PROVIDERS: Emergency Provider General Practice; PCP Internal Medicine Infectious Disease
DX: O03.4 Incomplete spontaneous abortion without complication (principal)
CPT/HCPCS: 36415; 76801; 76817; 81025; 84702; 85025; 85461; 85610; 85730; 86850; 86900; 86901; 90384; 96360; 96372; 99284; J2790; J7030

== ENCOUNTER 2023-10-31 12:07 | Outpatient (RCR) | payer MEDICAID, SELFPAY ==
[2023-11-01] MEDS: RHO(D) IMMUNE GLOBULIN 300 MCG/2 ML SYRINGE IM (17:39)
== END 2024-01-29 23:59 | disposition home or self-care (01) ==
LOC: ANHLAB 12:07
PROVIDERS: PCP Internal Medicine Infectious Disease; Visit Provider Obstetrics & Gynecology
DX: O26.859 Spotting complicating pregnancy, unspecified trimester (principal); Z29.13 Encounter for prophylactic Rho(D) immune globulin; O36.0190 Maternal care for anti-D [Rh] antibodies, unspecified trimester, not applicable or unspecified; Z3A.00 Weeks of gestation of pregnancy not specified
CPT/HCPCS: 36415; 85461; 86850; 86900; 86901; 90384; J2790

== ENCOUNTER 2024-02-19 11:29 | Observation (INO) | payer OTHER, SELFPAY ==
[2024-02-19] VITALS (8 sets, daily range): BP systolic 100–102; BP diastolic 52–59; PULSE 25–82; O2SAT 67–96; BMI 28.2
--- NOTE | ~2024-02-19 | US_ITS ---
EXAMINATION: 1. US OB limited 2. US OB transvaginal DATE: 02/19/2024 13:35 INDICATION: Vaginal bleeding. Placenta previa. Third trimester. TECHNIQUE: Real-time ultrasound of the pelvis was performed. COMPARISON: None. FINDINGS: Transabdominal images demonstrate a single fetus in vertex presentation. The placenta is posterior. heart rate is 139 beats per minute (bpm). The amniotic fluid volume is subjectively normal. Transvaginal images demonstrate a normal cervical length measuring 5.0 cm. The placenta is 2.1 cm fro m the cervix. IMPRESSION: 1. Single living fetus in vertex presentation. 2. Normal placenta, 2.1 cm from the cervix. Reviewed, dictated and finalized at location A. IMPRESSION: 1. Single living fetus in vertex presentation. 2. Normal placenta, 2.1 cm from the cervix.
[2024-02-19] MEDS: TERBUTALINE SULFATE 1 MG/ML VIAL 0.25 MG SUB-Q (12:30)
--- NOTE | 2024-02-19 12:46 | LDADM ---
This patient, Pat Colon, was admitted to OB Post 116 on 02/19/24 at 11:29. Plans for labor, pain management and were discussed with patient. Patient/family oriented to hospital policies and general routines including ID bracelet, bed and alarms, visiting hours, pain management, procedures, bathroom and other care routines, personal items, smoking policy, room service/diet and guest tray routines, infant security routines, and visiting hours. Patient/Family are encouraged to report perceived risks to care and to ask questions if they do not understand what they are told or what they should do. See OBIX for further documentation.
--- NOTE | 2024-02-19 13:09 | PC.NURSE ---
1129: Patient admits to L&D unit with complaints of a small amount of light pink vaginal bleeding at 0900 this morning and mild intermittent uterine cramping since last night 02/17 that she states feels like period cramps. Patient denies any recent intercourse. 1213: Spoke with Jorgito Carranza on phone. Notified of patient's arrival, uterine irritability, and light pink bleeding at 0900 but none since. Verbal orders received for a placenta check ultrasound, a dose of terbutaline, and to send a UA. 1313: Patient in US. US tech called unit and asked if transvaginal ultrasound is acceptable to visualize placenta. RN spoke with Jorgito Carranza CNM on phone. Provider states transvaginal US acceptable. RN notified US tech and will proceed with transvaginal US. Patient agrees with plan of care.
[2024-02-19 13:16] LABS: Appearance Urine Clear (Clear); Bacteria Urine Rare /hpf; Bilirubin Urine Negative (Negative); Blood Urine Negative (Negative); Color Urine Yellow (Yellow); Glucose Urine UA Negative (Negative); Ketones Urine Negative (Negative); Leukocyte Esterase Ur Trace LEU/UL (Negative); Nitrate Urine Negative (Negative); Non Pathogenic Casts 0-2; Protein Urine Negative (Negative); RBC Urine 0-2 /hpf (0-2); Squamous Epithelial Cell Urine Occasional /hpf (Few); WBC Urine 0-5 /hpf (0-3)
[2024-02-19 14:35] LABS: Add Urine Microscopic? YES
--- NOTE | 2024-02-19 16:53 | PC.NURSE ---
1352: Spoke with Jorgito Carranza CNM on phone regarding patient's US results, UA results, and that patient states her cramping is improving and abdomen palpates soft. Notified that patient has not had anymore vaginal bleeding since 0900 this morning. Verbal orders received to discharge patient to home on pelvic rest orders and patient is following up in office Sunday02/22/24. Patient agrees with plan of care and has no questions at this time.
--- NOTE | 2024-02-20 12:29 | PM.OBTRLD ---
OB - Triage/Final Diagnosis Visit Information Date of evaluation: 02/19/24 Reason for evaluation: other (bleeding) Comments/Additional reasons for admission: I have assessed the risk for this patient, Pat Colon, and determined that she would benefit from observation care. Evaluation Laboratory results: Laboratory Tests 02/19/24 12:41 Urine Color Yellow Urine Appearance Clear Urine pH 7.0 Ur Specific [place] 1.010 Urine Protein Negative Urine Glucose (UA) Negative Urine Ketones Negative Ur Blood (Man) Negative Urine Nitrate Negative Urine Bilirubin Negative Urine Urobilinogen 1.0 Leukocyte Esterase Rfl Trace H Urine RBC 0-2 Urine WBC 0-5 Ur Squamous Epith Cells Occasional Urine Bacteria Rare Urine Casts 0-2 Vital signs: Vital Signs - 24 hr 02/19/24 12:30 02/19/24 12:35 02/19/24 12:40 Pulse Rate 57 L Blood Pressure 100/59 L Pulse Oximetry 96 95 95 02/19/24 12:45 02/19/24 13:41 Pulse Rate Blood Pressure Pulse Oximetry 95 67 L
== END 2024-02-19 14:00 | disposition home or self-care (01) ==
PROVIDERS: Advanced Practice Midwife; Admitting Provider Obstetrics & Gynecology; PCP Internal Medicine Infectious Disease; Visit Provider Obstetrics & Gynecology
DX: O46.93 Antepartum hemorrhage, unspecified, third trimester (principal); Z3A.30 30 weeks gestation of pregnancy
CPT/HCPCS: 76815; 76817; 81001; 96372; A9270; G0378; G0379; J3105

== ENCOUNTER 2024-02-19 19:01 | Observation (INO) | payer OTHER, SELFPAY ==
--- NOTE | 2024-02-19 20:22 | OBADM ---
This patient, Pat Colon, admitted to the OB room OB Post 111 for observation. Patient/family oriented to hospital policies and general routines including ID bracelet, bed and alarms, visiting hours, pain management, procedures, bathroom and other care routines, personal items, smoking policy, room service/diet, and visiting hours. Patient/Family are encouraged to report perceived risks to care and to ask questions if they do not understand what they are told or what they should do.
[2024-02-19] MEDS: NIFEdipine 30 MG TAB.ER.24 PO (20:35)
[2024-02-19] MEDS: NIFEdipine 10 MG CAPSULE PO (20:35)
--- NOTE | 2024-03-19 17:43 | PM.OBTRLD ---
OB - Triage/Final Diagnosis Visit Information Comments/Additional reasons for admission: I have assessed the risk for this patient, Pat Colon, and determined that she would benefit from observation care. Final Diagnosis (1) Antepartum hemorrhage affecting intrauterine : Code(s): O46.90 - Antepartum hemorrhage, unspecified, unspecified trimester Status: Acute
== END 2024-02-19 20:40 | disposition home or self-care (01) ==
PROVIDERS: Admitting Provider Obstetrics & Gynecology; PCP Internal Medicine Infectious Disease; Visit Provider Obstetrics & Gynecology
DX: O46.90 Antepartum hemorrhage, unspecified, unspecified trimester (principal); Z3A.00 Weeks of gestation of pregnancy not specified
CPT/HCPCS: A9270; G0378; G0379

== ENCOUNTER 2024-04-01 21:47 | Observation (INO) | payer OTHER, SELFPAY ==
[2024-04-01] VITALS (16 sets, daily range): BP systolic 73–116; BP diastolic 45–73; PULSE 61–88; O2SAT 95–100; BMI 28.5
--- NOTE | 2024-04-01 21:47 | PC.NURSE ---
Pt presents to unit with right upper rib pain.
--- NOTE | 2024-04-01 22:44 | OBADM ---
This patient, Pat Colon, admitted to the OB room OB Post 117 for observation. Patient/family oriented to hospital policies and general routines including ID bracelet, bed and alarms, visiting hours, pain management, procedures, bathroom and other care routines, personal items, smoking policy, room service/diet, and visiting hours. Patient/Family are encouraged to report perceived risks to care and to ask questions if they do not understand what they are told or what they should do.
--- NOTE | 2024-04-01 22:56 | PC.NURSE ---
Called Dr. Kovacs, update on pt, upper rib pain of 10 that worsens after pt eats, tracing, contractions, and vital signs. Orders received to draw CBC, CMP, and urine sample, and order an outpatient ultrasound for 04/02, can give tramadol 50 mg if needed, discharge pt with ultrasound prescription if labs are normal.
[2024-04-01 23:29] LABS: Basophils Percent Auto 0.2 % (0.2-1.2); Eosinophils Absolute Auto 0.1 K/mm3 (0-0.3); Eosinophils Percent Auto 0.6 % (0-4.4); Hematocrit 31.7 % (37.0-47.0); Hemoglobin 11.1 g/dL (12.0-15.0); Immature Granulocyte Absolute 0.04 K/mm3 (0.00-0.031); Immature Granulocyte Percent A 0.5 % (0-0.5); Immature Platelet Fraction Pct 14.8 % (0.9-11.2); Lymphocytes Absolute Auto 1.89 K/mm3 (0.9-3.2); Lymphocytes Percent Auto 22.3 % (18.3-44.2); Mean Corpuscular Hemoglobin 32.1 pg (26-34); Mean Corpuscular Volume 91.6 fl (80-100); Mean Platelet Volume 12.2 fl (7.4-10.4); Monocytes Absolute Auto 0.7 K/mm3 (0.1-0.6); Monocytes Percent Auto 8.5 % (2.6-8.5); Neutrophils Absolute Auto 5.8 K/mm3 (1.3-6.7); Neutrophils Percent Auto 67.9 % (45.5-73.1); Platelet Count Result 132 k/mm3 (150-375); Red Blood Count 3.46 M/mm3 (4.2-5.4); Red Cell Distribution Width 12.9 % (11.5-14.5); White Blood Count 8.5 K/mm3 (4.5-10.0)
[2024-04-01 23:36] LABS: Appearance Urine Clear (Clear); Bacteria Urine None Seen /hpf; Bilirubin Urine Negative (Negative); Blood Urine Negative (Negative); Color Urine Yellow (Yellow); Glucose Urine UA Trace mg/dL (Negative); Ketones Urine Negative (Negative); Leukocyte Esterase Ur Trace LEU/UL (Negative); Nitrate Urine Negative (Negative); Non Pathogenic Casts 0-2; Protein Urine Negative (Negative); RBC Urine 0-2 /hpf (0-2); Specific Grav Ur 1.012 (1.001-1.035); Squamous Epithelial Cell Urine None Seen /hpf (Few)
[2024-04-01 23:41] LABS: Alanine Aminotransferase 12 U/L (6-35); Albumin Level 3.4 g/dL (3.5-5.1); Alkaline Phosphatase 98 U/L (38-126); Anion Gap 5 mmol/L (4-12); Aspartate Amino Transferase 22 U/L (14-36); Bilirubin,Total 0.4 mg/dL (0.2-1.3); Blood Urea Nitrogen 10 mg/dL (7-17); Carbon Dioxide 22 mmol/L (22-30); Chloride 108 mmol/L (98-107); Estimated Glomerular Filt Rate > 60; Glucose 103 mg/dL (65-110); Potassium 3.6 mmol/L (3.4-5.0); Sodium 135 mmol/L (137-145)
[2024-04-02 00:33] LABS: Add Urine Microscopic? YES
--- NOTE | 2024-04-02 01:09 | PC.NURSE ---
Pt discharged with instructions to keep next scheduled appointment, ultrasound prescription, and when to return to the unit, pt verbalizes understanding.
--- NOTE | 2024-04-29 12:13 | P.PNOB_ITS ---
OB - Triage/Final Diagnosis Visit Information Comments/Additional reasons for admission: I have assessed the risk for this patient, Pat Colon, and determined that she would benefit from observation care. Evaluation Laboratory results: Laboratory Tests 04/01/24 23:18 WBC 8.5 RBC 3.46 L Hgb 11.1 L Hct 31.7 L MCV 91.6 MCH 32.1 MCHC 35.0 RDW 12.9 Plt Count 132 L MPV 12.2 H Immature Gran % (Auto) 0.5 Neut % (Auto) 67.9 Lymph % (Auto) 22.3 [place] % (Auto) 8.5 Eos % (Auto) 0.6 Baso % (Auto) 0.2 Lymph # (Auto) 1.89 [place] # (Auto) 0.7 H Eos # (Auto) 0.1 Baso # (Auto) 0.0 Abs Immat Gran (auto) 0.04 H Absolute Neuts (auto) 5.8 Absolute Nucleated RBC 0.000 Nucleated RBC % 0.0 % Immature Plt Fraction 14.8 H Sodium 135 L Potassium 3.6 Chloride 108 H Carbon Dioxide 22 Anion Gap 5 BUN 10 D Creatinine 0.50 L Estim Creat Clear Calc Not Reportable Estimated GFR > 60 Glucose 103 Calcium 9.0 Total Bilirubin 0.4 AST 22 ALT 12 Alkaline Phosphatase 98 Total Protein 6.0 L Albumin 3.4 L Urine Color Yellow Urine Appearance Clear Urine pH 6.0 Ur Specific [place] 1.012 Urine Protein Negative Urine Glucose (UA) Trace H Urine Ketones Negative Ur Blood (Man) Negative Urine Nitrate Negative Urine Bilirubin Negative Urine Urobilinogen 1.0 Leukocyte Esterase Rfl Trace H Urine RBC 0-2 Urine WBC 6-10 H Ur Squamous Epith Cells None seen Urine Bacteria None seen Urine Casts 0-2 Final Diagnosis (1) Abdominal pain: Code(s): R10.9 - Unspecified abdominal pain Status: Acute
== END 2024-04-02 01:09 | disposition home or self-care (01) ==
PROVIDERS: Admitting Provider Obstetrics & Gynecology; PCP Internal Medicine Infectious Disease; Visit Provider Obstetrics & Gynecology
DX: O26.893 Other specified pregnancy related conditions, third trimester (principal); R10.9 Unspecified abdominal pain; Z3A.36 36 weeks gestation of pregnancy
CPT/HCPCS: 36415; 76705; 80053; 81001; 85025; 85055; 87086; G0378; G0379

== ENCOUNTER 2024-04-02 09:15 | Outpatient (CLI) | payer OTHER, SELFPAY ==
--- NOTE | ~2024-04-02 | US_ITS ---
EXAMINATION: US abdomen limited DATE: 04/02/2024 09:58 INDICATION: Abdominal tenderness, unspecified site. Right upper quadrant and epigastric abdominal des n. Third trimester of . TECHNIQUE: Multiple grayscale and Doppler ultrasound images of the abdomen were obtained. COMPARISON: None FINDINGS: The pancreas is obscured by bowel gas. The liver is normal without focal lesion. There is n ormal flow in main portal vein. The gallbladder is normal in size. No gallstones or gallbladder wall thickening. There was no sonographic Moreno's sign. The common duct is normal and measures 4 mm. Righ t kidney is normal in size. IMPRESSION: 1. No specific etiology for the patient's symptoms. Reviewed, dictated and finalized at location A.
== END 2024-04-02 09:16 | disposition home or self-care (01) ==
LOC: ANHIMG 09:17
PROVIDERS: PCP Internal Medicine Infectious Disease; Visit Provider Obstetrics & Gynecology
DX: R10.819 Abdominal tenderness, unspecified site (principal)
CPT/HCPCS: 76705

== ENCOUNTER 2024-04-18 05:00 | Inpatient (IN) | payer OTHER, SELFPAY ==
[2024-04-18] VITALS (314 sets, daily range): BP systolic 82–149; BP diastolic 37–132; PULSE 25–285; TEMP 36.6–37.3; O2SAT 82–100; BMI 29.0
[2024-04-18 05:38] LABS: Basophils Percent Auto 0.3 % (0.2-1.2); Eosinophils Absolute Auto 0.1 K/mm3 (0-0.3); Eosinophils Percent Auto 0.5 % (0-4.4); Hematocrit 34.4 % (37.0-47.0); Hemoglobin 11.8 g/dL (12.0-15.0); Immature Granulocyte Absolute 0.04 K/mm3 (0.00-0.031); Immature Granulocyte Percent A 0.4 % (0-0.5); Lymphocytes Absolute Auto 2.11 K/mm3 (0.9-3.2); Mean Corpuscular HGB Conc 34.3 g/dl (32-36); Mean Corpuscular Hemoglobin 31.9 pg (26-34); Mean Platelet Volume 12.1 fl (7.4-10.4); Monocytes Absolute Auto 0.7 K/mm3 (0.1-0.6); Monocytes Percent Auto 7.2 % (2.6-8.5); Neutrophils Absolute Auto 6.7 K/mm3 (1.3-6.7); Neutrophils Percent Auto 69.6 % (45.5-73.1); Platelet Count Result 127 k/mm3 (150-375); Red Cell Distribution Width 12.6 % (11.5-14.5); White Blood Count 9.6 K/mm3 (4.5-10.0)
[2024-04-18 06:30] LABS: HIV 1/2 Ab P24 Ag Result Negative (Negative)
--- NOTE | 2024-04-18 06:39 | PM.IMHP ---
H&P: HPI History of Present Illness Date/Time: 04/18/24 06:39 Chief Complaint: at 39.1 weeks gestation, here for elective IOL, complicated by history of delivery, followed by 2 successful vaginal deliveries. Review of Systems Review of Systems: All systems reviewed & are unremarkable except as noted in HPI and below PMFSH Past Medical History Medical History (Updated 04/18/24 @ 06:44 by Imelda Carranza CNM) Ectopic Family History Family History Mother Pott disease Father Hypertension Sibling Hypothyroidism Grandparent Lung cancer Brain cancer Social History Social History Smoking status: Never smoker Substance use: never Do You Feel Safe in your Home?: Yes Lack of Transportation: No Lack of Food: Never True Current Housing: I Have Housing Concerned About Future Housing: No Difficulty Paying Gas/Electric Bills: No Difficulty Paying for Meds: No Currently Unemployed: No Education: Master's Degree or Higher Difficulty w/ Childcare or Family Care: No Gender identity (if verbalized by the patient): Female Spiritual care concerns: No Meds Home Medications and Allergies Home Medications Medication Instructions Recorded Confirmed Type prenat.vits,rebel,upj-gnih-daxoi 1 tablet 03/28/24 History Allergies Allergy/AdvReac Type Severity Reaction Status Date / Time Penicillins Allergy Intermediate Hives Verified 04/02/24 03:50 latex Allergy Rash Verified 04/02/24 03:49 Vital Signs Vital Signs - 24 hr 04/18/24 05:16 04/18/24 05:52 04/18/24 05:53 Pulse Rate 87 75 Blood Pressure 124/68 119/76 Pulse Oximetry 89 L 99 Oxygen Delivery 04/18/24 05:57 04/18/24 06:00 04/18/24 06:02 Pulse Rate 77 Blood Pressure 119/79 Pulse Oximetry 100 100 Oxygen Delivery 04/18/24 06:10 04/18/24 06:15 04/18/24 06:20 Pulse Rate Blood Pressure Pulse Oximetry 100 100 100 Oxygen Delivery 04/18/24 06:22 04/18/24 06:24 04/18/24 06:27 Pulse Rate 66 Blood Pressure 116/74 Pulse Oximetry 100 100 Oxygen Delivery 04/18/24 06:31 04/18/24 06:35 04/18/24 05:35 Pulse Rate Blood Pressure Pulse Oximetry 100 100 Oxygen Delivery Room Air Exam Const: General: cooperative Nutritional Appearance: average body habitus Neck: Neck: normal visual inspection Chest: Chest palpation & inspection: normal inspection of the chest Resp: Effort & Inspection: normal respiratory effort and able to speak in complete sentences Cardio: Rate: regular rate Rhythm: regular rhythm : Other: gravid/soft SVE 1/70/-2 AROM moderate amount of clear, odorless fluid Skin: General skin exam: normal color Neuro: General: patient oriented x3 Extrem: General: normal to inspection Right lower extremity: normal to inspection Left lower extremity: normal to inspection Psych: Appearance: grossly normal Mental Status: mental status grossly normal H&P: Results Labs Labs: Short CBC 04/18/24 Range/Units 05:10 WBC 9.6 (4.5-10.0) K/mm3 Hgb 11.8 L (12.0-15.0) g/dL Hct 34.4 L (37.0-47.0) % Plt Count 127 L (150-375) k/mm3 Assessment and Plan Assessment and plan (1) (vaginal after ): Code(s): O34.219 - Maternal care for unspecified type scar from previous delivery Status: Acute (2) Elective induction of labor planned: Status: Acute Plan at 39.1 weeks gestation elective IOL; discussed with pt risks including uterine rupture, consent signed and pt agrees to proceed co-managing with dr. denney
[2024-04-18] MEDS: LACTATED RINGERS 1,000 ML 125 ML IV CONT ×5 (06:43→21:34)
--- NOTE | 2024-04-18 07:37 | WPDANESEPP ---
Anes - Eval Pre Procedure Procedure: Labor Epidural Date/Time: 04/18/24 07:37 Surgeon: Dr. Kovacs Preop Diagnosis: Labor pain Pre Op Diagnosis: IOL Patient Data Age: 38 Gender: F Height: 1.57 m Weight: 72 kg Last Vital Signs Pulse 64 04/18/24 07:30 BP 118/88 04/18/24 07:30 Pulse Ox 100 04/18/24 07:36 O2 Del Method Room Air 04/18/24 05:35 Allergies Allergy/AdvReac Type Severity Reaction Status Date / Time Penicillins Allergy Intermediate Hives Verified 04/02/24 03:50 latex Allergy Rash Verified 04/02/24 03:49 Home Medications Medication Instructions Recorded Confirmed Type prenat.vits,rebel,ume-ffnz-jsxzc 1 tablet 03/28/24 History Laboratory Tests 04/18/24 05:10 WBC 9.6 K/mm3 (4.5-10.0) RBC 3.70 L M/mm3 (4.2-5.4) Hgb 11.8 L g/dL (12.0-15.0) Hct 34.4 L % (37.0-47.0) MCV 93.0 fl (80-100) MCH 31.9 pg (26-34) MCHC 34.3 g/dl (32-36) RDW 12.6 % (11.5-14.5) Plt Count 127 L k/mm3 (150-375) MPV 12.1 H fl (7.4-10.4) Immature Gran % (Auto) 0.4 % (0-0.5) Neut % (Auto) 69.6 % (45.5-73.1) Lymph % (Auto) 22.0 % (18.3-44.2) [place] % (Auto) 7.2 % (2.6-8.5) Eos % (Auto) 0.5 % (0-4.4) Baso % (Auto) 0.3 % (0.2-1.2) Lymph # (Auto) 2.11 K/mm3 (0.9-3.2) [place] # (Auto) 0.7 H K/mm3 (0.1-0.6) Eos # (Auto) 0.1 K/mm3 (0-0.3) Baso # (Auto) 0.0 K/mm3 (0.0-0.1) Abs Immat Gran (auto) 0.04 H K/mm3 (0.00-0.031) Absolute Neuts (auto) 6.7 K/mm3 (1.3-6.7) Absolute Nucleated RBC 0.000 K/mm3 (0.0-0.012) Nucleated RBC % 0.0 % (0.0-0.2) RPR Pending HIV 1&2 Ab/P24 Ag 4thGn Negative (Negative) Blood Type A Negative Antibody Screen Negative Patient hx anesthesia problems: none Family hx anesthesia problems: none Results Review: All pre-operative results and documents have been reviewed as part of the pre-operative evaluation. [facility] Past Medical History Medical History Ectopic Family History Family History Mother Pott disease Father Hypertension Sibling Hypothyroidism Grandparent Lung cancer Brain cancer Social History Social History Smoking status: Never smoker Substance use: never Do You Feel Safe in your Home?: Yes Lack of Transportation: No Lack of Food: Never True Current Housing: I Have Housing Concerned About Future Housing: No Difficulty Paying Gas/Electric Bills: No Difficulty Paying for Meds: No Currently Unemployed: No Education: Master's Degree or Higher Difficulty w/ Childcare or Family Care: No Gender identity (if verbalized by the patient): Female Spiritual care concerns: No Exam Day of Procedure 04/18/24 07:37 Heart: regular rate and rhythm Lungs: normal air movement Neurological: alert and oriented
[2024-04-18] MEDS: PHENYLEPHRINE 1,000 MCG/10 ML SYRINGE 100 MCG IV PUSH ×5 (08:51→11:04)
[2024-04-18 11:21] LABS: Rapid Plasma Reagin Non-Reactive (NonReactive)
[2024-04-18] MEDS: OXYTOCIN 30 UNITS/NS 500 ML 30 UNITS/500 ML BAG IV CONT (16:58)
[2024-04-18] MEDS: FAMOTIDINE 20 MG/2 ML VIAL IV PUSH (20:11)
[2024-04-18] MEDS: ACETAMINOPHEN 500 MG TABLET 1000 MG PO (21:18)
[2024-04-18] MEDS: ceFAZolin 2 GM/D5W 50 ML 2 GM/50 ML BAG IVPB (21:34)
[2024-04-18] MEDS: ONDANSETRON INJ 4 MG/2 ML VIAL IV PUSH (22:04)
--- NOTE | 2024-04-18 22:52 | PM.IMHP ---
H&P: HPI History of Present Illness Date/Time: 04/18/24 22:52 Chief Complaint: Term Narrative: 38-year-old multiparous female at term with trial of labor after . Patient labored to complete. There was mild position of the head. Attempted rotation failed used vacuum on 2 pulls over 2 contractions to help bring the head down after rotation. The head could not be removed with gentle traction with the kiwi vacuum. No pop offs. Total time was less than 2 minutes. See note below. We agreed to perform . She understands the procedure. it has been explained to her. She has had a previous . She understands the risks, benefits, and alternatives. She understands that injuries may occur that result hospitalization, more surgery, and severe illness. She understands risk of hemorrhage and infection. She denies any nausea, vomiting, fever, chills. She denies any chest pain shortness of breath. Review of Systems Review of Systems: All systems reviewed & are unremarkable except as noted in HPI and below Constitutional: Constitutional: Denies chills, Denies fatigue, Denies fever(s) and Denies weakness Eyes: Eyes: Denies blurry vision, Denies change in vision, Denies loss of peripheral vision, Denies loss of vision, Denies other visual disturbances and Denies eye pain ENT: Denies vertigo, Denies dizziness, Denies hearing loss, Denies mouth pain, Denies nasal obstruction, Denies neck mass and Denies neck pain Cardiovascular: Cardiovascular: Denies chest pain, Denies diaphoresis, Denies syncope, Denies leg edema and Denies dyspnea Respiratory: Respiratory: Denies chest congestion, Denies cough, Denies hemoptysis, Denies dyspnea and Denies wheezing Gastrointestinal: Gastrointestinal: Denies abdominal pain, Denies constipation, Denies diarrhea, Denies nausea and Denies vomiting Genitourinary: Genitourinary: Denies hematuria, Denies change in libido, Denies nocturia, Denies genital lesions, Denies flank pain and Denies urinary urgency Musculoskeletal: Musculoskeletal: Denies abnormal gait, Denies back pain, Denies myalgias, Denies arthralgias, Denies joint swelling, Denies muscle weakness and Denies neck pain Integumentary/Breasts: Skin/Breast: Denies swelling, Denies breast pain, Denies breast mass, Denies dry skin, Denies nipple discharge, Denies unusual bruising and Denies jaundice Neurologic: Denies Neuro-related abnormal movements, Denies Abnormal speech present, Denies abnormal gait, Denies behavioral changes, Denies confusion, Denies vertigo, Denies dizziness, Denies syncope, Denies loss of vision, Denies memory loss, Denies convulsions and Denies weakness Psychiatric: Psychiatric: Denies abnormal sleep pattern, Denies behavioral changes, Denies change in libido, Denies confusion, Denies depression, Denies anhedonia and Denies memory loss Endocrine: Endocrine: Reports no additional endocrine complaints, Denies change in libido and Denies fatigue Hematologic/Lymphatic: Hematologic/Lymphatic: Reports no additional hematologic/lymphatic complaints Allergic/Immunologic: Allergic/Immunologic: Reports no additional allergic/immunologic complaints and Denies wheezing PMFSH Past Medical History Medical History Ectopic Family History Family History Mother Pott disease Father Hypertension Sibling Hypothyroidism Grandparent Lung cancer Brain cancer Social History Social History Smoking status: Never smoker Substance use: never Do You Feel Safe in your Home?: Yes Lack of Transportation: No Lack of Food: Never True Current Housing: I Have Housing Concerned About Future Housing: No Difficulty Paying Gas/Electric Bills: No Difficulty Paying for Meds: No Currently Unemployed: No Education: [employer]
--- NOTE | 2024-04-18 23:00 | W.PM.PROC2 ---
Procedure Note - Detailed Date of Procedure 04/18/24 Pre-op Diagnosis IOL , failure to descend, TOLAC Post-op Diagnosis Same Procedure Performed failed vacuum extraction of . Surgeon Zander Kovacs MD Anesthesia Epidural Findings Infant's head was in the opiate position. It was rotated to the OA position. Description of Procedure 's head was in the direct OP position. it was gently rotated to the OA position. It was direct OA with the kiwi vacuum was applied. Infant was a +2 station. Gentle traction on the vacuum was attempted to bring the head into the pelvis more the position of the 's head could be more stable. Two pulls over 2 contractions lasting less than 2 minutes did not move the . The vacuum extraction was abandoned. There were no pop offs. Complications No immediate complications Condition Stable
[2024-04-19] VITALS (13 sets, daily range): BP systolic 88–112; BP diastolic 51–80; PULSE 61–78; RESP 16–20; TEMP 36.2–37.1; O2SAT 97–100
--- NOTE | 2024-04-19 00:09 | P.PCNOB_ITS ---
OB - Delivery Note Procedure Delivery date: 04/19/24 Pre-op diagnosis: Arrest of Decent and Other ( Malposition of the head, female sterilization) Post-op Diagnosis: Same Procedure Performed: Repeat and Tubal Ligation Surgeon: Zander Kovacs MD Anesthesia type: Epidural Description of Procedure/Findings: The patient was taken the operating room.? She was prepped and draped in dorsal supine position with a leftward tilt.? This was done after spinal anesthetic was applied.? A low-transverse skin incision was made and carried down till of the fascia with the knife.? The fascial incision was made with the knife.? The fascial incision was extended laterally with Tubbs scissors.? The fascia was tented upward superiorly and inferiorly the rectus muscles were dissected off bluntly.? The rectus muscles were the midline.? The preperitoneal fat and peritoneum were dissected open bluntly at the superior aspect of the rectus muscles.? The peritoneal incision was extended superior and inferior with good position of bladder.? The uterine incision was made with a scalpel down to the level of the amniotic cavity.? The amniotic cavity was entered bluntly.? The was delivered.? The cord was clamped and cut and the infant was handed off to waiting pediatric staff.? Cord bloods were obta ined.? The placenta was removed manually.? The uterus was exteriorized.? The uterus was cleared of all clots, debris and membranes.? The uterus was closed in 0 Vicryl running lock fashion.? imbricating layer of 0 Vicryl was placed also. Each fallopian tube was grasped and raised with a [place].? With from the underlying venous structures.? The mesosalpinx between the tube and the rest the adnexa was cauterized and transected with LigaSure cautery.? It was performed from the distal tube near the ovary in a stepwise fashion towards the cornua.? The tube at the cornua was cauterized transected with LigaSure cautery.? This was performed in a bilateral fashion. The uterus was returned to the abdomen.? The gutters were cleared of all clots and debris.? The fascia was closed with 0 Vicryl running fashion.? The subcutaneous tissue was irrigated pinpoint bleeders were cauterized.? The skin was closed with subcuticular absorbable [place].? The skin incision line was covered with glue.? The patient tolerated the procedure well.? She has taken recovery room in stable condition.? Sponge lap and needle counts were correct x2.? Specimen: No Estimated Blood Loss: 600 Pathology: None sent Complications: No immediate complications [place] Baby Weeks of gestation at delivery: 39
--- NOTE | 2024-04-19 02:54 | OBPPTRN ---
Patient transferred to post room # 292 via ( Stretcher ). Support person present. Oriented to unit, room, information board, rooming in, admission packet and security measures. Patient verbalizes understanding.
[2024-04-19] MEDS: ACETAMINOPHEN 325 MG TABLET 650 MG PO ×3 (04:10→16:45)
[2024-04-19] MEDS: KETOROLAC 15 MG/ML VIAL (*BKC) IV PUSH ×3 (04:10→16:46)
[2024-04-19] MEDS: LIDOCAINE 5% PATCH 1 PATCH TRANSDERM (04:24)
[2024-04-19] MEDS: LORATADINE 10 MG TABLET (04:30)
--- NOTE | 2024-04-19 07:00 | PC.NURSE ---
Patient was set up with hospital breast pump while is in level 2 nursery. Pump parts washed and set to dry per this RN. Encouraged pumping every 2-3 hours during the daytime.
[2024-04-19] MEDS: DEXTROSE 5%/0.45% SOD CHL 1,000 ML 125 ML IV CONT (07:01)
[2024-04-19] MEDS: MULTIVIT/MIN/PREN/FOL AC/IRON TABLET 1 TAB PO (08:23)
[2024-04-19] MEDS: DOCUSATE SODIUM 100 MG CAPSULE PO ×2 (08:23→16:45)
[2024-04-19] MEDS: SIMETHICONE 80 MG TAB.CHEW PO ×3 (08:23→16:45)
--- NOTE | 2024-04-19 09:31 | PM.OBPNVD ---
OB - PN: Subj Subjective Date/time seen: 04/19/24 09:31 Interval history: post op day 1 section doing well catheter still in place OB - PN: Obj Data Labs 04/18/24 05:10 Labs: Laboratory Results - last 24 hr 04/18/24 05:10 RPR Non-reactive OB - PN A/P Plan day: 1 Plan: routine care Time Spent With Patient Time: Total time spent is greater than 50% in coordination of care (as documented) at patient's floor/unit and/or counseling patient: Review of Systems Review of Systems: All systems reviewed & are unremarkable except as noted in HPI and below Exam Const: General: cooperative Chest: Chest palpation & inspection: normal inspection of the chest Resp: Effort & Inspection: normal respiratory effort Cardio: Rate: regular rate Rhythm: regular rhythm GI: Other: Incision CDI Skin: General skin exam: normal color Neuro: General: patient oriented x3 Extrem: Right lower extremity: normal to inspection Left lower extremity: normal to inspection Psych: Appearance: grossly normal
--- NOTE | 2024-04-19 10:40 | PC.NURSE ---
Patient taken to first floor nursery per wheelchair to visit .
--- NOTE | 2024-04-19 11:05 | PC.NURSE ---
Patient returned to room from visiting infant in first floor nursery.
[2024-04-20] MEDS: ACETAMINOPHEN 325 MG TABLET 650 MG PO ×4 (02:41→21:10)
[2024-04-20] MEDS: KETOROLAC 15 MG/ML VIAL (*BKC) IV PUSH (02:41)
[2024-04-20] MEDS: LIDOCAINE 5% PATCH 1 PATCH TRANSDERM (05:01)
[2024-04-20 06:00] LABS: Basophils Percent Auto 0.2 % (0.2-1.2); Eosinophils Absolute Auto 0.1 K/mm3 (0-0.3); Eosinophils Percent Auto 0.5 % (0-4.4); Hematocrit 26.7 % (37.0-47.0); Hemoglobin 8.6 g/dL (12.0-15.0); Immature Granulocyte Absolute 0.07 K/mm3 (0.00-0.031); Immature Granulocyte Percent A 0.7 % (0-0.5); Lymphocytes Absolute Auto 0.87 K/mm3 (0.9-3.2); Lymphocytes Percent Auto 9.3 % (18.3-44.2); Mean Corpuscular HGB Conc 32.2 g/dl (32-36); Mean Corpuscular Hemoglobin 31.5 pg (26-34); Mean Corpuscular Volume 97.8 fl (80-100); Mean Platelet Volume 12.2 fl (7.4-10.4); Monocytes Absolute Auto 0.8 K/mm3 (0.1-0.6); Monocytes Percent Auto 8.5 % (2.6-8.5); Neutrophils Absolute Auto 7.6 K/mm3 (1.3-6.7); Neutrophils Percent Auto 80.8 % (45.5-73.1); Platelet Count Result 101 k/mm3 (150-375); Red Blood Count 2.73 M/mm3 (4.2-5.4); Red Cell Distribution Width 13.3 % (11.5-14.5); White Blood Count 9.4 K/mm3 (4.5-10.0)
[2024-04-20 07:52] VITALS: BP 110/45; PULSE 65; RESP 20; TEMP 36.6; O2SAT 98
--- NOTE | 2024-04-20 08:48 | PM.OBPNVD ---
OB - PN: Subj Subjective Date/time seen: 04/20/24 08:48 Interval history: post op day 2 section doing well voiding/flatus present OB - PN: Obj Data Labs 04/20/24 04:25 Labs: Laboratory Results - last 24 hr 04/20/24 04:25 WBC 9.4 RBC 2.73 L Hgb 8.6 L D Hct 26.7 L MCV 97.8 D MCH 31.5 MCHC 32.2 RDW 13.3 Plt Count 101 L MPV 12.2 H Immature Gran % (Auto) 0.7 H Neut % (Auto) 80.8 H Lymph % (Auto) 9.3 L [place] % (Auto) 8.5 Eos % (Auto) 0.5 Baso % (Auto) 0.2 Lymph # (Auto) 0.87 L [place] # (Auto) 0.8 H Eos # (Auto) 0.1 Baso # (Auto) 0.0 Abs Immat Gran (auto) 0.07 H Absolute Neuts (auto) 7.6 H Absolute Nucleated RBC 0.000 Nucleated RBC % 0.0 Blood Type A Negative Antibody Screen Negative Baby's Blood Type O pos Baby's TERRI Negative OB - PN A/P Plan day: 2 Plan: routine care and discharge home Time Spent With Patient Time: Total time spent is greater than 50% in coordination of care (as documented) at patient's floor/unit and/or counseling patient: Review of Systems Review of Systems: All systems reviewed & are unremarkable except as noted in HPI and below Exam Const: General: cooperative and healthy appearing Chest: Chest palpation & inspection: normal inspection of the chest Resp: Effort & Inspection: normal respiratory effort Cardio: Rate: regular rate Rhythm: regular rhythm GI: Other: incision CDI Back/Spine/Pelvis: Back: no CVA tenderness Skin: General skin exam: normal color Extrem: Right lower extremity: normal to inspection Left lower extremity: normal to inspection
[2024-04-20] MEDS: POLYSACCHARIDE IRON COMPLEX 150 MG CAPSULE PO ×2 (09:17→17:41)
[2024-04-20] MEDS: DOCUSATE SODIUM 100 MG CAPSULE PO ×2 (09:17→17:41)
[2024-04-20] MEDS: SIMETHICONE 80 MG TAB.CHEW PO ×3 (09:17→17:41)
[2024-04-20] MEDS: IRON SUCROSE COMPLEX 100 MG in SODIUM CHLORIDE 0.9% IV 50 ML 220 MG IVPB (09:18)
[2024-04-20] MEDS: IBUPROFEN 600 MG TABLET PO ×3 (09:18→21:10)
[2024-04-20] MEDS: MULTIVIT/MIN/PREN/FOL AC/IRON TABLET 1 TAB PO (09:18)
--- NOTE | 2024-04-20 12:09 | WPDANLDPN2 ---
Anes-Prog Note L&D Date/Time: 04/20/24 12:09 Comfortable throughout: section Neuraxial method: epidural Epidural/Spinal procedure site: clean & non-tender Neuro status: Neuro function grossly intact. Cardiovascular status: normal Respiratory status: normal Airway patency: baseline Mental status: baseline Post-Op hydration status: normal Vital Signs: Last Vital Signs Temp 36.6 C 04/20/24 07:52 Pulse 65 04/20/24 07:52 Resp 20 04/20/24 07:52 BP 110/45 L 04/20/24 07:52 Pulse Ox 98 04/20/24 07:52 O2 Del Method Room Air 04/20/24 08:00 Pain score (VAS): 0/10 I/O: Intake & Output 04/19/24 04/20/24 04/20/24 23:59 07:59 15:59 Intake Total 1650 295 Output Total 900 1100 Balance 750 -1100 295 Post-procedural complaints: none Patient feedback: Patient satisfied with anesthetic care.
--- NOTE | 2024-04-20 12:09 | WPDANLDNPN2 ---
Anes-Prog Note L&D-Neuraxial Date/Time: 04/20/24 12:09 Neuraxial medications: epidural PF morphine Opiod-related complaints: none Patient feedback: Patient satisfied with post-operative pain management.
[2024-04-20] MEDS: RHO(D) IMMUNE GLOBULIN 300 MCG/2 ML SYRINGE IM (12:30)
[2024-04-20 20:00] VITALS: BP 100/41; PULSE 87; RESP 16; TEMP 37.6; O2SAT 97
[2024-04-21] MEDS: LIDOCAINE 5% PATCH 1 PATCH TRANSDERM (01:56)
[2024-04-21] MEDS: ACETAMINOPHEN 325 MG TABLET 650 MG PO ×2 (02:47→10:22)
[2024-04-21] MEDS: IBUPROFEN 600 MG TABLET PO ×2 (02:47→10:21)
[2024-04-21 07:30] VITALS: BP 118/78; PULSE 73; RESP 16; TEMP 36.6; O2SAT 97
--- NOTE | 2024-04-21 09:07 | PM.OBPNVD ---
OB - PN: Subj Subjective Date/time seen: 04/21/24 09:07 Interval history: post op day 3 section doing well voiding/flatus present OB - PN: Obj Data Labs 04/20/24 04:25 Labs: Laboratory Results - last 24 hr 04/20/24 04:25 Blood Type A Negative Antibody Screen Negative Screen Negative Baby's Blood Type O pos Baby's TERRI Negative Doses of RhIg Required 1 OB - PN A/P Plan day: 3 Plan: routine care and discharge home Time Spent With Patient Time: Total time spent is greater than 50% in coordination of care (as documented) at patient's floor/unit and/or counseling patient: Review of Systems Review of Systems: All systems reviewed & are unremarkable except as noted in HPI and below Exam Const: General: cooperative Chest: Chest palpation & inspection: normal inspection of the chest GI: Other: incision CDI Skin: General skin exam: normal color
--- NOTE | 2024-04-21 09:12 | PM.OBDSVD ---
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 Status: Acute OB - DS: Summary OB Procedures : None OB Procedures Intrapartum: OB Procedures: : None Peripartum Data Procedures: Procedures Operation Date: 04/18/24 22:50 Actual Procedure Side Surgeon p Section Not Applicable Zander Kovacs MD Time Spent with Patient Time attestation: Total time spent providing and/or coordinating discharge services: DS: Data Data Completed and Pending Pending studies at discharge: Pending at discharge 04/21/24 07:02 Surgical [PTH] Routine Labs on day of discharge: Labs from last 24 hours 04/20/24 04:25 Blood Type A Negative Antibody Screen Negative Screen Negative Baby's Blood Type O pos Baby's TERRI Negative Doses of RhIg Required 1 Discharge Plan Discharge Attending physician on discharge: Zander Kovacs Discharging Clinician: Imelda Carranza Patient Disposition: Home, Self-Care Activity: pelvic rest Diet: regular Patient Instructions: Antibiotic Form Stand Alone Forms: General Discharge Information Follow-up/Referrals: Zander Kovacs MD [Physician] - 1 Week (post op) Discharge Medications: New hydrocodone-acetaminophen 5-325 mg Tablet 1 tablet PO Q3H PRN (Reason: Breakthrough Pain Rated 4-6) 10 Days Qty: 25 0RF polysaccharide iron complex 150 mg iron Capsule 150 mg PO BIDWM Qty: 60 0RF Continued prenat.vits,rebel,wku-[id number] Tablet 1 tablet Date of admission: 04/18/24 05:00 Primary Care Provider: Esthela,rBandy Admitting Provider: Zander Kovacs Attending physician on admission: Zander Kovacs Condition: Stable
[2024-04-21] MEDS: POLYSACCHARIDE IRON COMPLEX 150 MG CAPSULE PO (10:17)
[2024-04-21] MEDS: SIMETHICONE 80 MG TAB.CHEW PO (10:18)
[2024-04-21] MEDS: DOCUSATE SODIUM 100 MG CAPSULE PO (10:18)
[2024-04-21] MEDS: MULTIVIT/MIN/PREN/FOL AC/IRON TABLET 1 TAB PO (10:21)
--- NOTE | 2024-04-21 17:47 | PC.NURSE ---
1230 removed Lidocaine patch due to pt will soon be D/C'd.
[2024-04-22 13:19] VITALS: BP 120/73; PULSE 67; RESP 18; TEMP 36.4; O2SAT 100
== END 2024-04-21 12:45 | disposition home or self-care (01) | DRG 539 ==
LOC: ANHLDR 05:03 → ANHOB2 04-19 03:16
PROVIDERS: Admitting Provider Obstetrics & Gynecology; PCP Internal Medicine Infectious Disease; Referring Provider Advanced Practice Midwife; Visit Provider Obstetrics & Gynecology
PROC: 10D00Z1 Extraction of Products of Conception, Low, Open Approach (ICD-10-PCS; CPT 59514; principal; 2024-04-18 22:50)
DX: O34.211 Maternal care for low transverse scar from previous cesarean delivery (principal); Z37.0 Single live birth; Z3A.39 39 weeks gestation of pregnancy; O62.2 Other uterine inertia; O66.5 Attempted application of vacuum extractor and forceps
CPT/HCPCS: 36415; 85025; 85461; 86592; 86703; 86850; 86900; 86901; 88302; 90384; A9270; G0432; J0690; J1756; J1885; J2274; J2371; J2405; J2590; J2790; J2795; J7120